=== PATIENT | female | born 1990 | race Caucasian/White ===

== ENCOUNTER 2021-05-31 09:15 | Emergency (ER) | payer OTHER, SELFPAY ==
[2021-05-31 09:28] VITALS: BP 126/75; PULSE 75; RESP 20; TEMP 36.3; O2SAT 99
--- NOTE | 2021-05-31 10:09 | PC.NURSE ---
NO URINE CULTURE PER PROVIDER.
--- NOTE | 2021-05-31 10:09 | ED.FEMALEGU ---
HPI - Female Genitourinary General Chief complaint: Urogenital-Female Stated complaint: abdo pain Time Seen by Provider: 05/31/21 09:58 Source: patient and RN notes reviewed Mode of arrival: ambulatory Limitations: no limitations History of Present Illness HPI Narrative: Patient presents today complaining of a 2-week history of dysuria, suprapubic pain intermittently, frequency, urgency, dyspareunia. LMP was 2 weeks ago. She has tried no [id number] treatment prior to arrival. She does have some concerns for sexually transmitted infections. Denies vaginal discharge or bleeding MD elicited complaint: dysuria Related Data Home Medications Medication Instructions Recorded Confirmed No Home Medications 05/31/21 05/31/21 Allergies Allergy/AdvReac Type Severity Reaction Status Date / Time No Known Allergies Allergy Verified 05/31/21 09:34 Review of Systems Review of Systems: CONSTITUTIONAL: Denies body aches, fever, chills, or sweats. EYES: Denies visual changes, redness, or discharge. ENT: Denies rhinorrhea, congestion, sore throat, or otalgia. CARDIOVASCULAR: Denies chest pain, palpitations, or edema. RESPIRATORY: Denies cough or dyspnea. GASTROINTESTINAL: Denies abdominal pain, nausea, vomiting, or diarrhea. GENITOURINARY: + Dysuria, urgency, frequency, suprapubic pain, dyspareunia SKIN: Denies rash, itching, or wounds. MUSCULOSKELETAL: Denies back pain, joint pain, or myalgia. NEUROLOGIC: Denies headache, numbness, tingling, or weakness. PSYCH: Denies depression or anxiety. PMFSH Comments At time of signature, I have reviewed and agree with nursing past medical, surgical, social and family history unless otherwise noted. Please see nursing chart for further information. There is no relevant family history pertinent to the presenting complaint Exam Narrative: GENERAL: Well-appearing, well-nourished, and in no acute distress. HEAD: Normocephalic, atraumatic. EYES: EOMI. No redness or drainage. Conjunctivae normal. ENT: Mucous membranes pink and moist. NECK: Normal AROM. CHEST: No respiratory distress. Clear to auscultation. HEART: Regular rate and rhythm. No murmur appreciated. Normal peripheral pulses. ABDOMEN: Soft, nontender, nondistended, normal active bowel sounds.-CVAT MUSCULOSKELETAL: No bony tenderness. EXTREMITIES: Normal range of motion. No edema. SKIN: Warm, dry, no rash. Capillary refill normal. Normal skin turgor. NEURO: No focal deficits. Alert and oriented x3. Gait steady. PSYCH: Normal affect. No signs of depression or anxiety. Course Course Emergency Course: Patient was given the option of giving a urine sample for gonorrhea, chlamydia, or trichomonas, or following up with the sexual health clinic. She would like to follow-up at an outside clinic to get a full work-up Vital Signs Vital signs: Vital Signs Temperature 97.3 F L 05/31/21 09:28 Pulse Rate 75 05/31/21 09:28 Respiratory Rate 20 05/31/21 09:28 Blood Pressure 126/75 05/31/21 09:28 Pulse Oximetry 99 05/31/21 09:28 Temperature 97.3 F L 05/31/21 09:28 Pulse Rate 75 05/31/21 09:28 Respiratory Rate 20 05/31/21 09:28 Blood Pressure 126/75 05/31/21 09:28 Pulse Oximetry 99 05/31/21 09:28 Reviewed. Pt has been instructed to follow up with her PCP regarding her elevated blood pressure today. MDM - Female Genitourinary Differential Diagnosis Differential diagnosis: Likely urinary tract infection, bacterial vaginosis, trichomoniasis, vaginitis and other (Gonorrhea, chlamydia, PID) Lab Data Attestation: I reviewed the patient's lab results. Labs: UCG Bedside Result Negative Reference Range: Negative Urine Glucose Negative Reference Range: Negative Urine Bilirubin Negative Reference Range: Negative Urin
== END 2021-05-31 10:18 | disposition home or self-care (01) ==
PROVIDERS: Emergency Provider Nurse Practitioner
DX: R30.0 Dysuria (principal); N94.10 Unspecified dyspareunia
CPT/HCPCS: 81003; 81025; 99213; G0463